=== PATIENT | female | born 1980 | race Caucasian/White ===

== ENCOUNTER 2022-09-28 08:24 | Emergency (ER) | payer SELFPAY ==
[2022-09-28 08:40] VITALS: BP 105/52; PULSE 85; RESP 20; TEMP 36.6; O2SAT 98
--- NOTE | 2022-09-28 09:07 | ED.URI ---
HPI - URI/Sore Throat General Chief Complaint: Upper Respiratory Infection Stated Complaint: Cough,Congestion Time Seen by Provider: 09/28/22 08:56 Source: patient Mode of arrival: ambulatory Limitations: no limitations History of Present Illness HPI Narrative: Patient presents today complaining of 4 day history of cough, sinus pressure, chest congestion. Denies fever, sore throat. No history of asthma or COPD. She smokes 1 pack per day. Patient started taking Augmentin that she had left over in her home on day of onset of symptoms and stopped yesterday evening. She has also been taking a sinus pill at home without relief. Related Data Allergies Allergy/AdvReac Type Severity Reaction Status Date / Time No Known Allergies Allergy Verified 09/28/22 08:39 Review of Systems Review of Systems: CONSTITUTIONAL: Denies body aches, fever, chills, or sweats. EYES: Denies visual changes, redness, or discharge. ENT: Denies rhinorrhea, sore throat, or otalgia.+ congestion, sinus pressure CARDIOVASCULAR: Denies chest pain, palpitations, or edema. RESPIRATORY: Denies dyspnea.+ cough, chest congestion GASTROINTESTINAL: Denies abdominal pain, nausea, vomiting, or diarrhea. GENITOURINARY: Denies dysuria or hematuria. SKIN: Denies rash, itching, or wounds. MUSCULOSKELETAL: Denies back pain, joint pain, or myalgia. NEUROLOGIC: Denies headache, numbness, tingling, or weakness. PSYCH: Denies depression or anxiety. PMFSH Comments At time of signature, I have reviewed and agree with nursing past medical, surgical, social and family history unless otherwise noted. Please see nursing chart for further information. There is no relevant family history pertinent to the presenting complaint Exam Narrative: GENERAL: Well-appearing, well-nourished, and in no acute distress. HEAD: Normocephalic, atraumatic. EYES: EOMI. No redness or drainage. Conjunctivae normal. ENT: Mucous membranes pink and moist. Nares congested. No rhinorrhea. TMs normal bilaterally. Throat normal. Uvula midline. NECK: Normal AROM. Supple. No lymphadenopathy. CHEST: No respiratory distress. Slight expiratory wheeze bilateral lower lobes, otherwise clear. HEART: Regular rate and rhythm. No murmur appreciated. Normal peripheral pulses. EXTREMITIES: Normal range of motion. No edema. SKIN: Warm, dry, no rash. Capillary refill normal. Normal skin turgor. NEURO: No focal deficits. Alert and oriented x3. Gait steady. PSYCH: Normal affect. No signs of depression or anxiety. Course Course Level of Care: Express Care Visit Vital Signs Vital signs: Vital Signs Temperature 97.8 F 09/28/22 08:40 Pulse Rate 85 09/28/22 08:40 Respiratory Rate 20 09/28/22 08:40 Blood Pressure 105/52 L 09/28/22 08:40 Pulse Oximetry 98 09/28/22 08:40 Oxygen Delivery Room Air 09/28/22 08:40 Temperature 97.8 F 09/28/22 08:40 Pulse Rate 85 09/28/22 08:40 Respiratory Rate 20 09/28/22 08:40 Blood Pressure 105/52 L 09/28/22 08:40 Pulse Oximetry 98 09/28/22 08:40 Oxygen Delivery Room Air 09/28/22 08:40 Reviewed MDM - URI/Sore Throat MDM Narrative Medical decision making narrative: Patient's symptoms likely due to seasonal allergies. Prescription for prednisone and Tessalon Perle sent to pharmacy. Anticipatory guidance given. Differential Diagnosis Differential diagnosis: Likely upper respiratory infection, sinusitis, viral infection and bronchitis Critical Care Time Critical Care Time Critical Care Time: No Discharge Plan Discharge Clinical Impression: Bronchitis, Seasonal allergies Patient Disposition: Home, Self-Care Condition: Stable Instructions: Acute Bronchitis (ED), Allergies (ED) Additional Instructions: Your symptoms are likely due to seasonal allergies. Started daily antihistamine such as Zyrtec, Claritin, or Hellen. Take the prednisone as directed. Use the Tessalon Perles if needed for cough. Follow-up wit
== END 2022-09-28 08:56 | disposition home or self-care (01) ==
PROVIDERS: Emergency Provider Nurse Practitioner
DX: J40 Bronchitis, not specified as acute or chronic (principal); J30.2 Other seasonal allergic rhinitis; F17.200 Nicotine dependence, unspecified, uncomplicated
CPT/HCPCS: 99203; G0463

== ENCOUNTER 2022-10-04 10:14 | Emergency (ER) | payer OTHER, SELFPAY ==
[2022-10-04 10:31] VITALS: BP 112/65; PULSE 87; RESP 18; TEMP 36.3; O2SAT 99
--- NOTE | 2022-10-04 10:39 | ED.URI ---
HPI - URI/Sore Throat General Chief Complaint: Upper Respiratory Infection Stated Complaint: Cough,Chest Pain Time Seen by Provider: 10/04/22 10:39 Source: patient, RN notes reviewed and old records reviewed Mode of arrival: ambulatory Limitations: no limitations History of Present Illness HPI Narrative: 42 year old female who presents to [facility] care with complaints of cough for 2 week duration with no fevers reported. Patient reports that she had round of Prednisone with no resolution of her symptoms. Patient states that she has been taking some cough drops for her cough, has some nasal congestion, denies any dyspnea. Patient reports that she wants more steroids and a Z-pack, she is over it. Patient reports that her cough is hacking and is nonproductive. She also reports some pain to her left ear. MD elicited complaint: cough and other (left ear pain) Pertinent past history: other (positive for tobacco abuse) Onset (ago): week(s) (2) Able to tolerate fluids by mouth: Yes Treatments prior to arrival: other (cough drops and had round of steroids) Related Data Allergies Allergy/AdvReac Type Severity Reaction Status Date / Time No Known Allergies Allergy Verified 10/04/22 10:43 Review of Systems Review of Systems: CONSTITUTIONAL: Denies malaise, chills, sweats, or fever. EYES: Denies visual changes, redness, or discharge. ENT: Reports rhinorrhea, congestion, sinus pain, left otalgia , no sore throat. CARDIOVASCULAR: Denies chest pain, palpitations, or edema. RESPIRATORY: Reports cough.? Denies dyspnea. GASTROINTESTINAL: Denies abdominal pain, nausea, vomiting, diarrhea SKIN: Denies rash or itching. MUSCULOSKELETAL: Denies myalgia. NEUROLOGIC: Denies headache. All systems reviewed & are unremarkable except as noted in HPI and below PMFSH Past Medical History Medical History (Updated 10/05/22 @ 08:29 by Yenni Frost NP) Bronchitis History of dental problems Pneumonia Surgical History Surgical History (Updated 10/05/22 @ 08:25 by Yenni Frost NP) Previous section x2 Social History Social History (Updated 10/05/22 @ 08:23 by Yenni Frost NP) Smoking packs per day: 1 Smoking cigarettes per day: 20.0 Years smoked: 25 Smoking pack-years: 25.00 Smoking status: Current every day smoker Alcohol intake: unknown Substance use: unknown Living arrangements: with family Gender identity (if verbalized by the patient): Female Comments At time of signature, agree with nursing past medical, surgical, social and family history. There is no relevant family history pertinent to the presenting complaint Exam Narrative: GENERAL: Well-appearing, well-nourished, and in no acute distress. HEAD: Normocephalic EYES: PERRLA, conjunctivae clear ENT: Nares clear, turbinates edematous and erythematous, clear discharge. Mucous membranes moist.Left TM red,Right TM pearly gill with dull light reflex, no drainage; no tragal tenderness. Oropharynx erythematous without lesions. Tonsils not enlarged and without exudate, no drooling, no hoarseness, no trismus, uvula midline.post nasal drainage NECK: Supple. No lymphadenopathy CHEST: Clear to auscultation, breath sounds equal. No wheezing, rhonchi, rales, or stridor. No respiratory distress, speaks in full sentences.hacking cough SAO2 99% on room air HEART: Regular rate and rhythm. No murmur heard. SKIN: Warm, dry, no rash. NEURO: Alert and oriented x3. PSYCH: Normal mood and affect Course Course Emergency Course: Patient is aware of diagnosis, understands and agrees to treatment plan.? Anticipatory guidance given.? Patient agrees to follow-up as directed and is aware of reasons to seek care at the emergency department. Portions of this record may have been created with voice recognition software Level of Care: Express Care Visit Vital Signs Vital signs: Vital Signs Temperature 36.3 C L 10/04/22 1
== END 2022-10-04 11:20 | disposition home or self-care (01) ==
PROVIDERS: Emergency Provider Registered Nurse
DX: H66.92 Otitis media, unspecified, left ear (principal); J06.9 Acute upper respiratory infection, unspecified; R05.9 Cough, unspecified; F17.210 Nicotine dependence, cigarettes, uncomplicated
CPT/HCPCS: 99213; G0463

== ENCOUNTER 2022-11-14 17:21 | Emergency (ER) | payer OTHER, SELFPAY ==
[2022-11-14 17:29] VITALS: BP 114/69; PULSE 86; RESP 18; TEMP 36.4; O2SAT 99
--- NOTE | 2022-11-14 17:46 | ED.FEMALEGU ---
HPI - Female Genitourinary General Chief complaint: Urogenital-Female Stated complaint: Female Urogenital Time Seen by Provider: 11/14/22 17:35 Source: patient and RN notes reviewed Mode of arrival: ambulatory Limitations: no limitations History of Present Illness HPI Narrative: Patient presents today complaining of dysuria since this morning that she currently rates 4/10. Denies urgency or frequency. The patient also started her menstrual cycle today. She reports lower abdominal cramping and back pain related to her period, but none additionally. She has tried no [id number] treatment prior to arrival. Related Data Allergies Allergy/AdvReac Type Severity Reaction Status Date / Time No Known Allergies Allergy Verified 11/14/22 17:26 Review of Systems Review of Systems: CONSTITUTIONAL: Denies body aches, fever, chills, or sweats. EYES: Denies visual changes, redness, or discharge. ENT: Denies rhinorrhea, congestion, sore throat, or otalgia. CARDIOVASCULAR: Denies chest pain, palpitations, or edema. RESPIRATORY: Denies cough or dyspnea. GASTROINTESTINAL: Denies abdominal pain, nausea, vomiting, or diarrhea. GENITOURINARY: + dysuria SKIN: Denies rash, itching, or wounds. MUSCULOSKELETAL: Denies back pain, joint pain, or myalgia. NEUROLOGIC: Denies headache, numbness, tingling, or weakness. PSYCH: Denies depression or anxiety. [facility] Past Medical History Medical History Bronchitis History of dental problems Pneumonia Surgical History Surgical History Previous section x2 Social History Social History Smoking packs per day: 1 Smoking cigarettes per day: 20.0 Years smoked: 25 Smoking pack-years: 25.00 Smoking status: Current every day smoker Alcohol intake: unknown Substance use: unknown Living arrangements: with family Gender identity (if verbalized by the patient): Female Comments At time of signature, I have reviewed and agree with nursing past medical, surgical, social and family history unless otherwise noted. Please see nursing chart for further information. There is no relevant family history pertinent to the presenting complaint Exam Narrative: GENERAL: Well-appearing, well-nourished, and in no acute distress. HEAD: Normocephalic, atraumatic. EYES: EOMI. No redness or drainage. Conjunctivae normal. ENT: Mucous membranes pink and moist. NECK: Normal AROM. CHEST: No respiratory distress. Clear to auscultation. HEART: Regular rate and rhythm. No murmur appreciated. Normal peripheral pulses. ABDOMEN: Soft, nontender, nondistended, normal active bowel sounds. EXTREMITIES: Normal range of motion. No edema. SKIN: Warm, dry, no rash. Capillary refill normal. Normal skin turgor. NEURO: No focal deficits. Alert and oriented x3. Gait steady. PSYCH: Normal affect. No signs of depression or anxiety. Course Course Level of Care: Express Care Visit Vital Signs Vital signs: Vital Signs Temperature 97.6 F 11/14/22 17:29 Pulse Rate 86 11/14/22 17:29 Respiratory Rate 18 11/14/22 17:29 Blood Pressure 114/69 11/14/22 17:29 Pulse Oximetry 99 11/14/22 17:29 Oxygen Delivery Room Air 11/14/22 17:29 Temperature 97.6 F 11/14/22 17:29 Pulse Rate 86 11/14/22 17:29 Respiratory Rate 18 11/14/22 17:29 Blood Pressure 114/69 11/14/22 17:29 Pulse Oximetry 99 11/14/22 17:29 Oxygen Delivery Room Air 11/14/22 17:29 Reviewed MDM - Female Genitourinary MDM Narrative Medical decision making narrative: Blood in the UA can be attributed to pt's menses. Will treat pt based on the protein and her symptoms. Anticipatory guidance given. Differential Diagnosis Differential diagnosis: Likely urinary tract infection, vaginitis and cystitis Lab Data Attestati
== END 2022-11-14 17:54 | disposition home or self-care (01) ==
PROVIDERS: Emergency Provider Nurse Practitioner
DX: N30.00 Acute cystitis without hematuria (principal); F17.210 Nicotine dependence, cigarettes, uncomplicated
CPT/HCPCS: 81003; 87086; 99213; G0463

== ENCOUNTER 2023-04-30 08:48 | Emergency (ER) | payer OTHER, SELFPAY ==
--- NOTE | 2023-04-30 09:11 | ED.URI ---
HPI - URI/Sore Throat General Chief Complaint: Upper Respiratory Infection Stated Complaint: rt earache,throat pain,cough Time Seen by Provider: 04/30/23 09:11 Source: patient Mode of arrival: ambulatory Limitations: no limitations History of Present Illness HPI Narrative: Nga is a 43-year-old female patient presenting to the clinic today with complaints of right ear pain, sore throat, cough, and wheezing. She reports symptoms have been going on for over 1 month. She denies any fever or chills. States she is having a lot of maxillary sinus pressure. Green and yellow nasal discharge MD elicited complaint: cough, sore throat, nasal congestion and other (Right ear pain) Related Data Allergies Allergy/AdvReac Type Severity Reaction Status Date / Time No Known Allergies Allergy Verified 04/30/23 09:11 Review of Systems Review of Systems: Pertinent positives per HPI. Patient denies any fever, chills, rash, headache, visual changes, dizziness, shortness of breath, chest pain, palpitations, nausea, vomiting, diarrhea, constipation, abdominal pain, or any urinary issues. PMFSH Past Medical History Medical History Bronchitis History of dental problems Pneumonia Surgical History Surgical History Previous section x2 Social History Social History Smoking packs per day: 1 Smoking cigarettes per day: 20.0 Years smoked: 25 Smoking pack-years: 25.00 Smoking status: Current every day smoker Alcohol intake: unknown Substance use: unknown Living arrangements: with family Gender identity (if verbalized by the patient): Female Comments At the time of my signature, I reviewed and agree with the nursing past medical, surgical, social, and family history. There is no relevant family history pertinent to the patient complaint. Exam Narrative: General: Well-developed, well nourished, in no apparent distress Head: Normocephalic, atraumatic Eyes: Pupils equally round and reactive to light bilaterally, EOM intact, sclera and conjunctive clear, no discharge, lids normal Ears: TMs intact and congested, ear canals clear, no drainage, grossly hearing normal. Nose: Nares patent, yellow nasal discharge, moderate inflammation, maxillary sinus tenderness. Mouth: Oral pharynx red without lesions or masses, poor dentition, MMM. Neck: Supple, trachea midline, no enlargement of anterior or posterior cervical nodes, no thyroid masses or goiter palpable. Cardio: Regular rate and rhythm, s1 and s2 normal, no murmur appreciated. Resp: Expiratory wheezing, no rhonchi, rales, or rubs Course Course Emergency Course: Portions of this record may have been created with voice recognition software. Level of Care: Express Care Visit Vital Signs Vital signs: Vital signs reviewed MDM - URI/Sore Throat MDM Narrative Medical decision making narrative: At the time of visit patient is resting comfortably on the exam table. Patient is nontoxic appearing. i suspect patient has sinobronchitis. Prescription for Augmentin, prednisone, and albuterol inhaler was sent to the pharmacy and supportive measures were discussed with the patient she voiced understanding discharge instructions agrees to treatment plan. Return precautions reviewed. Differential Diagnosis Differential diagnosis: Likely upper respiratory infection, otitis media, sinusitis, viral infection, bronchitis, influenza, pharyngitis and other (COVID) Discharge Plan Discharge Clinical Impression: Sinobronchitis Patient Disposition: Home, Self-Care Condition: Stable Instructions: Antibiotic Form, Acute Bronchitis (ED), Rhinosinusitis (ED) Additional Instructions: Take prescription medications only as prescribed-prednisone, Augmentin, and albuterol inhaler Increase fl
[2023-04-30 09:20] VITALS: BP 133/59; PULSE 87; RESP 18; TEMP 36.1; O2SAT 99
== END 2023-04-30 09:30 | disposition home or self-care (01) ==
PROVIDERS: Emergency Provider Nurse Practitioner Family
DX: J32.9 Chronic sinusitis, unspecified (principal); J40 Bronchitis, not specified as acute or chronic; F17.210 Nicotine dependence, cigarettes, uncomplicated
CPT/HCPCS: 99213; G0463

== ENCOUNTER 2023-06-21 09:07 | Emergency (ER) | payer OTHER, SELFPAY ==
[2023-06-21 09:22] VITALS: BP 113/64; PULSE 86; RESP 16; TEMP 36.4; O2SAT 99
--- NOTE | 2023-06-21 09:48 | ED.URI ---
HPI - URI/Sore Throat General Chief Complaint: Upper Respiratory Infection Stated Complaint: Cough and Sinus Problems Time Seen by Provider: 06/21/23 09:48 Source: patient, RN notes reviewed and old records reviewed Mode of arrival: ambulatory Limitations: no limitations History of Present Illness HPI Narrative: 43-year-old female who presents to [facility] Care with complaints of sinus pressure with drainage, cough,and ear pain for the past 3 days. Patient reports that she had some left over Augmentin and she took 7 doses and some OTC sinus pill without improvement in symptoms. 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 Patient denies any body aches, known fevers chills or sweats, Patient reports that she is out of her inhaler and needs refill. MD elicited complaint: cough, rhinorrhea and nasal congestion Pertinent past history: other (Bronchitis and tobacco abuse) Onset (ago): day(s) (3) Severity: moderate Able to tolerate fluids by mouth: Yes Treatments prior to arrival: other (7 doses of Augmentin left over, sinus med OTC) Related Data Allergies Allergy/AdvReac Type Severity Reaction Status Date / Time No Known Allergies Allergy Verified 06/21/23 09:25 Review of Systems Review of Systems: CONSTITUTIONAL: Denies malaise, chills, sweats, or fever. EYES: Denies visual changes, redness, or discharge. ENT: Reports rhinorrhea, congestion, sinus pain, otalgia and no sore throat. CARDIOVASCULAR: Denies chest pain, palpitations, or edema. RESPIRATORY: Reports cough.? Denies acute dyspnea. GASTROINTESTINAL: Denies abdominal pain, nausea, vomiting, diarrhea SKIN: Denies rash or itching. MUSCULOSKELETAL: Denies myalgia. NEUROLOGIC: Denies headache. All systems reviewed & are unremarkable except as noted in HPI and below PMFSH Past Medical History Medical History (Updated 06/22/23 @ 00:01 by Rachael Crews) Bronchitis History of dental problems Pneumonia Surgical History Surgical History (Updated 06/23/23 @ 12:31 by Yenni Frost NP) H/O tubal ligation Previous section x2 Social History Social History Smoking packs per day: 1 Smoking cigarettes per day: 20.0 Years smoked: 25 Smoking pack-years: 25.00 Smoking status: Current every day smoker Alcohol intake: unknown Substance use: unknown Living arrangements: with family Gender identity (if verbalized by the patient): Female Comments At time of signature, agree with nursing past medical, surgical, social and family history. There is no relevant family history pertinent to the presenting complaint Exam Narrative: GENERAL: Well-appearing, well-nourished, and in no acute distress. HEAD: Normocephalic EYES: PERRLA, conjunctivae clear ENT: Nares clear, turbinates edematous and erythematous, clear discharge. Mucous membranes moist. TM pearly gill with dull light reflex bilaterally; no tragal tenderness. Oropharynx erythematous without lesions. Tonsils not enlarged and without exudate, no drooling, no hoarseness, no trismus, uvula midline. NECK: Supple. No lymphadenopathy CHEST: Scattered wheezes on auscultation, breath sounds equal.positive for wheezing,no rhonchi, rales, or stridor. No respiratory distress, speaks in full sentences, HEART: Regular rate and rhythm. No murmur heard. frequent cough,SAO2 99% on room air SKIN: Warm, dry, no rash. NEURO: Alert and oriented x3. PSYCH: Normal mood and affect Course Course Emergency Course: Patient is aware of diagnosis, understands and agrees to treatment plan.? Anticipatory guidance given.? Patient agrees to follow-up as directed and is aware of reasons to seek care at the emergency department. Portions of this record may have been created with voice recognition software Level of Care: Express Care Visit Vital Signs Vital signs: Vital Signs Temperature 36.4 C 05/28
== END 2023-06-21 10:06 | disposition home or self-care (01) ==
PROVIDERS: Emergency Provider Registered Nurse
DX: J40 Bronchitis, not specified as acute or chronic (principal); F17.210 Nicotine dependence, cigarettes, uncomplicated
CPT/HCPCS: 99213; G0463

== ENCOUNTER 2023-10-22 09:29 | Emergency (ER) | payer OTHER, SELFPAY ==
--- NOTE | 2023-10-22 09:35 | ED.URI ---
HPI - URI/Sore Throat General Chief Complaint: Upper Respiratory Infection Stated Complaint: Cold symptoms Time Seen by Provider: 10/22/23 09:35 Source: patient Mode of arrival: ambulatory Limitations: no limitations History of Present Illness HPI Narrative: Nga is a 43-year-old female patient presenting to the clinic today with complaints of cough, nasal congestion, and chest congestion x1 day. She reports she has a nonproductive cough with nasal congestion and chest congestion. States that she does feel short of breath at times. History of bronchitis and pneumonia in the past. She is a current smoker. Denies any fever, chills, or body aches. Suffers from seasonal allergies. MD elicited complaint: cough and nasal congestion Related Data Home Medications Medication Instructions Recorded Confirmed No Home Medications 10/22/23 10/22/23 Allergies Allergy/AdvReac Type Severity Reaction Status Date / Time No Known Allergies Allergy Verified 10/22/23 10:04 Review of Systems Review of Systems: Pertinent positives per HPI. Patient denies any fever, chills, rash, headache, visual changes, dizziness, runny nose, sore throat,chest pain, palpitations, nausea, vomiting, diarrhea, constipation, abdominal pain, or any urinary issues. PMFSH Past Medical History Medical History Bronchitis History of dental problems Pneumonia Surgical History Surgical History H/O tubal ligation Previous section x2 Social History Social History Smoking packs per day: 1 Smoking cigarettes per day: 20.0 Years smoked: 25 Smoking pack-years: 25.00 Smoking status: Current every day smoker Alcohol intake: unknown Substance use: unknown Living arrangements: with family Gender identity (if verbalized by the patient): Female Comments At the time of my signature, I reviewed and agree with the nursing past medical, surgical, social, and family history. There is no relevant family history pertinent to the patient complaint. Exam Narrative: General: Well-developed, well nourished, in no apparent distress Head: Normocephalic, atraumatic Eyes: Pupils equally round and reactive to light bilaterally, EOM intact, sclera and conjunctive clear, no discharge, lids normal Ears: TMs intact and congested, ear canals clear, no drainage, grossly hearing normal. Nose: Nares patent, no discharge, moderate inflammation, no sinus tenderness. Mouth: Oropharynx without lesions or masses, good dentition, MMM. Neck: Supple, trachea midline, no enlargement of anterior or posterior cervical nodes, no thyroid masses or goiter palpable. Cardio: Regular rate and rhythm, s1 and s2 normal, no murmur appreciated. Resp: Clear to auscultation bilaterally anteriorly and posteriorly, no rhonchi, rales, wheezing or rubs Course Course Emergency Course: Portions of this record may have been created with voice recognition software. Level of Care: Express Care Visit Vital Signs Vital signs: Vital signs reviewed MDM - URI/Sore Throat MDM Narrative Medical decision making narrative: At the time of visit patient is resting comfortably on the exam table. Patient appears to be nontoxic. Plan: I suspect patient has URI. Patient has history of bronchitis and pneumonia. Is out of her albuterol inhaler at home. Prescription for albuterol inhaler was sent to the pharmacy per patient's request and prednisone was sent to the pharmacy. Supportive measures were discussed with the patient and they voiced understanding discharge instructions and agrees to treatment plan. Return precautions reviewed Differential Diagnosis Differential diagnosis: Likely upper respiratory infection, otitis media, sinusitis, viral infection, bronchitis, influenza, pharyngitis and other
[2023-10-22 09:46] VITALS: BP 109/52; PULSE 85; RESP 18; TEMP 36.1; O2SAT 98
== END 2023-10-22 10:05 | disposition home or self-care (01) ==
PROVIDERS: Emergency Provider Nurse Practitioner Family; Referring Provider Family Medicine
DX: J06.9 Acute upper respiratory infection, unspecified (principal); F17.210 Nicotine dependence, cigarettes, uncomplicated
CPT/HCPCS: 99211; G0463

== ENCOUNTER 2024-01-25 13:49 | Emergency (ER) | payer OTHER, SELFPAY ==
--- NOTE | 2024-01-25 13:53 | ED.URI ---
HPI - URI/Sore Throat General Chief Complaint: Upper Respiratory Infection Stated Complaint: Cold symptoms and heavy coughs Time Seen by Provider: 01/25/24 13:53 Source: patient Mode of arrival: ambulatory Limitations: no limitations History of Present Illness HPI Narrative: Felix is a 43-year-old female patient presenting to the clinic today with complaints of cough, congestion, and shortness of breath. She reports she gets bronchitis easily when she gets URI. States symptoms have been going on for 3 days. She denies any fever or chills. She is a current smoker. Denies sore throat. MD elicited complaint: cough and nasal congestion Related Data Allergies Allergy/AdvReac Type Severity Reaction Status Date / Time No Known Allergies Allergy Verified 01/25/24 13:57 Review of Systems Review of Systems: Pertinent positives per HPI. Patient denies any fever, chills, rash, headache, visual changes, dizziness, chest pain, palpitations, nausea, vomiting, diarrhea, constipation, abdominal pain, or any urinary issues. PMFSH Past Medical History Medical History Bronchitis History of dental problems Pneumonia Surgical History Surgical History H/O tubal ligation Previous section x2 Social History Social History Smoking packs per day: 1 Smoking cigarettes per day: 20.0 Years smoked: 25 Smoking pack-years: 25.00 Smoking status: Current every day smoker Alcohol intake: unknown Substance use: unknown Living arrangements: with family Gender identity (if verbalized by the patient): Female Comments At the time of my signature, I reviewed and agree with the nursing past medical, surgical, social, and family history. There is no relevant family history pertinent to the patient complaint. Exam Narrative: General: Well-developed, well nourished, in no apparent distress Head: Normocephalic, atraumatic Eyes: Pupils equally round and reactive to light bilaterally, EOM intact, sclera and conjunctive clear, no discharge, lids normal Ears: TMs intact and clear, ear canals clear, no drainage, grossly hearing normal. Nose: Nares patent, clear nasal discharge, no inflammation, no sinus tenderness. Mouth: Oral pharynx without lesions or masses, good dentition, MMM. Neck: Supple, trachea midline, no enlargement of anterior or posterior cervical nodes, no thyroid masses or goiter palpable. Cardio: Regular rate and rhythm, s1 and s2 normal, no murmur appreciated. Resp: Faint expiratory wheezing, no rhonchi, rales, or rubs Course Course Emergency Course: Portions of this record may have been created with voice recognition software. Level of Care: Express Care Visit Vital Signs Vital signs: Vital signs reviewed MDM - URI/Sore Throat MDM Narrative Medical decision making narrative: At the time of visit patient is resting comfortably on the exam table. Patient appears to be nontoxic. Plan: I suspect patient has acute bronchitis. Prescription for Tessalon Perles, prednisone, and albuterol inhaler was sent to the pharmacy. Supportive measures were discussed with the patient and they voiced understanding discharge instructions and agrees to treatment plan. Return precautions reviewed Differential Diagnosis Differential diagnosis: Likely upper respiratory infection, otitis media, sinusitis, viral infection, bronchitis, influenza, pharyngitis and other (COVID) Discharge Plan Discharge Clinical Impression: Bronchitis Patient Disposition: Home, Self-Care Condition: Stable Instructions: Antibiotic Form, Acute Bronchitis (ED) Additional Instructions: Take prescription medications only as prescribed-albuterol inhaler, Tessalon Perles, and prednisone Increase fluids and stay well hydrated Tylenol/motrin for
[2024-01-25 13:56] VITALS: BP 135/73; PULSE 91; RESP 18; TEMP 36.6; O2SAT 98
[2024-01-25 13:57] VITALS: BP 135/73; PULSE 91; RESP 18; TEMP 36.6; O2SAT 98
== END 2024-01-25 14:10 | disposition home or self-care (01) ==
PROVIDERS: Emergency Provider Nurse Practitioner Family
DX: J40 Bronchitis, not specified as acute or chronic (principal); F17.210 Nicotine dependence, cigarettes, uncomplicated
CPT/HCPCS: 99213; G0463

== ENCOUNTER 2025-04-25 19:38 | Emergency (ER) | payer OTHER, SELFPAY ==
[2025-04-25 19:45] VITALS: BP 145/85; PULSE 104; RESP 20; TEMP 35.6; O2SAT 100
--- NOTE | 2025-04-25 19:50 | ED.EAR ---
HPI - Ear Problem General Chief complaint: Ear Stated complaint: LT Ear Pain patient presents to the [facility] with complaints of worsening ear pain on the left that started 2 days ago. Patient noted for the last month she has had fluid in her ear and has had intermittent pain in the left ear. No medication remedies attempted for symptoms. Patient noted for the last 2 days she has been using warm compresses and ibuprofen without relief for symptoms. Denies fever, chills, body aches headache dizziness. Related Data Allergies Allergy/AdvReac Type Severity Reaction Status Date / Time No Known Allergies Allergy Verified 04/25/25 19:45 Review of Systems Constitutional: Constitutional: Reports as per HPI, Denies chills, Denies fatigue, Denies fever(s) and Denies weakness Eyes: Eyes: Reports no additional eye complaints ENT: Reports as per HPI, Denies vertigo, Denies dizziness, Denies nasal congestion and Denies sore throat Comments: Left ear pain and swelling with drainage Cardiovascular: Cardiovascular: Reports no additional cardiovascular complaints Respiratory: Respiratory: Reports as per HPI, Denies chest congestion and Denies cough Gastrointestinal: Gastrointestinal: Reports no additional gastrointestinal complaints Genitourinary: Genitourinary: Reports no additional female genitourinary complaints Musculoskeletal: Musculoskeletal: Reports no additional musculoskeletal complaints Integumentary/Breasts: Skin/Breast: Reports as per HPI, Denies pruritus, Denies erythema and Denies rash Comments: swelling left outer ear Neurologic: Reports as per HPI, Denies headache(s), Denies numbness and Denies weakness Psychiatric: Psychiatric: Reports no additional psychiatric complaints Endocrine: Endocrine: Reports no additional endocrine complaints Hematologic/Lymphatic: Hematologic/Lymphatic: Reports no additional hematologic/lymphatic complaints Allergic/Immunologic: Allergic/Immunologic: Reports as per HPI Comments: seasonal allergies, chronic bronchitis PMFSH Past Medical History Medical History Bronchitis History of dental problems Pneumonia Surgical History Surgical History H/O tubal ligation Previous section x2 Social History Social History Smoking packs per day: 1 Smoking cigarettes per day: 20.0 Years smoked: 25 Smoking pack-years: 25.00 Smoking status: Current every day smoker Alcohol intake: unknown Substance use: unknown Living arrangements: with family Gender identity (if verbalized by the patient): Female Exam Const: General: healthy appearing and no acute distress Nutritional Appearance: well nourished Orientation/consciousness: patient oriented x3 Limitations: no limitations HENMT: Head: normal to inspection Ears: external ears abnormal and TM's normal bilaterally Face/Nose/Sinus: Normal external nose present, Normal nares present and no nasal discharge noted Face and sinus: normal facial exam and sinuses nontender Mouth: Yes Normal oral and palatal mucosa present, Yes lip normal and Yes moist mucous membranes Throat: posterior oropharynx normal Other: pain with movement left ear, swelling to tragus and the earlobe left ear. Left ear canal significant swelling, purulence drainage, and erythema noted. Right TM and canal normal Neck: Neck: normal visual inspection and lymphadenopathy ( left posterior auricular) Resp: Effort & Inspection: normal respiratory effort Auscultation: clear to auscultation bilaterally Cardio: Rate: regular rate Rhythm: regular rhythm Skin: General skin exam: normal color Rashes: no rashes Wounds: no wounds Neuro: General: patient oriented x3 Speech: normal speech Gait exam (Neuro): Normal gait present Psych: Mental Status: mental status grossly normal Affect: normal affect Attitude: cooperative Course Course Level of Care: Express Care Visit Vital Signs Vital signs: Vital Signs Temperature 96.1 F L 04/25/25 19:45 Pulse Rate 104 H 04/25/25 19:45 Respiratory Rate 20 04/25/25 19:45 Blood Pressure 145/85 H 04/25/25 19:45 Pulse Oximetry 100 04/25/25 19:45 Oxygen Delivery Room Air 04/25/25 19:45 Temperature 96.1 F L 04/25/25 19:45 Pulse Rate 104 H 04/25/25 19:45 Respiratory Rate 20 04/25/25 19:45 Blood Pressure 145/85 H 04/25/25 19:45 Pulse Oximetry 100 04/25/25 19:45 Oxygen Delivery Room Air 04/25/25 19:45 Medical Decision Making MDM Narrative Medical decision making narrative: The patient was evaluated by myself in the express care. History is obtained from patient who is an independent historian and physical exam was performed. Available medical records were reviewed at this time. Exam findings show no acute concerns or changes; patient is non-toxic appearing and is in no distress. Patient is appropriate for outpatient treatment and follow-up. I have evaluated and discussed social determinants of health with the patient that could potentially impact subsequent diagnosis and treatment plans. Differential diagnosis and treatment plan were discussed with the patient. Patient agrees with discussion and after shared medical decision making agrees with plan of care. All questions were answered to the patient's satisfaction. Differential Diagnosis Differential Diagnosis: otitis media, otitis externa, allergies, sinusitis Medical Records Medical records reviewed: Yes I reviewed the external patient's medical records. Vital Signs Vital Signs: Vital Signs Temperature 96.1 F L 04/25/25 19:45 Pulse Rate 104 H 04/25/25 19:45 Respiratory Rate 20 04/25/25 19:45 Blood Pressure 145/85 H 04/25/25 19:45 Pulse Oximetry 100 04/25/25 19:45 Oxygen Delivery Room Air 04/25/25 19:45 Temperature 96.1 F L 04/25/25 19:45 Pulse Rate 104 H 04/25/25 19:45 Respiratory Rate 20 04/25/25 19:45 Blood Pressure 145/85 H 04/25/25 19:45 Pulse Oximetry 100 04/25/25 19:45 Oxygen Delivery Room Air 04/25/25 19:45 Discharge Plan Discharge Clinical Impression: Acute otitis externa of left ear Patient Disposition: Home Condition: Stable Instructions: Antibiotic Form, Swimmer's Ear (ED) Additional Instructions: -Ear drops as directed for 7-10 days until the pain and swelling are gone. -When administer drug into the affected ear; make sure to ly down with the affected ear facing upward, message the ear canal to help the drops reach the medial end of the canal, then remain in that position for at least 5 mintues. -Avoid using cotton tipped applicator for ears cleaning -Avoid exposing swimming or exposing the affected ear to water during the treatment period Take or alternate tylenol or ibuprofen every 4 - 6 hours if needed for pain. Follow up with primary care provider if condition is not improving in 7 days or sooner if there is new concern. Patient Language: [place] Island[place] Prescriptions: New cephalexin 500 mg capsule 500 mg PO Q12H Qty: 20 0RF ciprofloxacin-dexamethasone 0.3-0.1 % drops,suspension 4 drp LEFT EAR Q12H 7 Days Qty: 7.5 0RF No Action albuterol sulfate 90 mcg/actuation HFA aerosol inhaler 2 puff inhalation Q4-6H PRN (Reason: shortness of breath or wheezing) 30 Days Qty: 8.5 0RF Follow-up/Referrals: PHYSICIAN,VOCATIONAL EDUCATION TEACHER [Primary Care Provider, Internal Medicine] Time of Disposition: 19:53
== END 2025-04-25 19:57 | disposition home or self-care (01) ==
PROVIDERS: Emergency Provider Nurse Practitioner Family
DX: H60.502 Unspecified acute noninfective otitis externa, left ear (principal); F17.210 Nicotine dependence, cigarettes, uncomplicated
CPT/HCPCS: 99213; G0463